=== PATIENT | male | born 1995 | race Caucasian/White ===

== ENCOUNTER 2020-08-29 18:00 | Emergency (ER) | payer BC, OTHER ==
[2020-08-29 18:06] VITALS: BP 135/88; PULSE 106; RESP 18; TEMP 98.4
[2020-08-29] MEDS ORDERED: IBUPROFEN 800 MG TAB PO STA (18:07)
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
--- NOTE | 2020-08-29 18:38 | XR ---
PROCEDURE: XR hand complete LT - 3V DATE AND TIME: 08/29/2020 6:13 PM CLINICAL INDICATION: [facility]; Injured while working TECHNIQUE: Department protocol COMPARISON: None FINDINGS: There is no fracture or malalignment. The soft tissues are unremarkable. IMPRESSION: NO ACUTE PROCESS.
== END 2020-08-29 19:00 | disposition home or self-care (01) ==
LOC: EC 18:00
DX: S63.617A Unspecified sprain of left little finger, initial encounter (principal); J45.909 Unspecified asthma, uncomplicated; X58.XXXA Exposure to other specified factors, initial encounter; Y92.532 Urgent care center as the place of occurrence of the external cause; Y99.0 Civilian activity done for income or pay
CPT/HCPCS: 99283

== ENCOUNTER 2021-03-21 03:00 | Emergency (ER) | payer BC, OTHER ==
[2021-03-21 03:15] VITALS: RESP 18; TEMP 97.8
--- NOTE | 2021-03-21 04:35 | XR ---
EXAMINATION TYPE: XR wrist complete LT DATE OF EXAM: 03/21/2021 COMPARISON: NONE HISTORY: Wrist pain TECHNIQUE: 4 views FINDINGS: Carpal bones are intact. I see no fracture nor dislocation. Joint spaces are normal. Metaca rpals are intact. IMPRESSION: Negative left wrist exam. No fracture.
[2021-03-21] MEDS ORDERED: IBUPROFEN 600 MG TAB PO STA (04:37)
[2021-03-21] MEDS ORDERED: HYDROcodone/APAP 5-325MG 1 EACH TAB PO STA (04:37)
[2021-03-21 04:43] VITALS: BP 126/89; PULSE 66
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
== END 2021-03-21 05:39 | disposition home or self-care (01) ==
LOC: EC 03:00
DX: S16.1XXA Strain of muscle, fascia and tendon at neck level, initial encounter (principal); S63.502A Unspecified sprain of left wrist, initial encounter; J45.909 Unspecified asthma, uncomplicated; Z79.899 Other long term (current) drug therapy; V89.2XXA Person injured in unspecified motor-vehicle accident, traffic, initial encounter; Y92.410 Unspecified street and highway as the place of occurrence of the external cause
CPT/HCPCS: 72125; 99284

== ENCOUNTER → 2021-03-31 | Outpatient (CLI) | payer OTHER ==
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
== END | disposition home or self-care (01) ==
LOC: RADXRMAIN 09:59
PROVIDERS: ATTEND Emergency Medicine
DX: M25.532 Pain in left wrist (principal); S69.92XA Unspecified injury of left wrist, hand and finger(s), initial encounter; V89.2XXA Person injured in unspecified motor-vehicle accident, traffic, initial encounter

== ENCOUNTER 2021-12-30 19:55 | Emergency (ER) | payer OTHER ==
[2021-12-30 20:12] VITALS: BP 127/83; PULSE 107; RESP 16; TEMP 98.3
[2021-12-30] MEDS ORDERED: PROPARACAINE 0.5% OPHTH DROPS 15 ML BTL BOTH EYES STA (20:35)
[2021-12-30] MEDS ORDERED: FLUORESCEIN STRIPS 1 MG STRIP BOTH EYES ONE (20:35)
[2021-12-30] MEDS ORDERED: ERYTHROMYCIN 5 MG/GM OPHTH OINT 3.5 GM TUBE RIGHT EYE STA (20:53)
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
== END 2021-12-30 21:37 | disposition home or self-care (01) ==
LOC: EC 19:55
DX: T15.01XA Foreign body in cornea, right eye, initial encounter (principal); J45.909 Unspecified asthma, uncomplicated
CPT/HCPCS: 99282; 99283

== ENCOUNTER 2022-03-05 02:17 | Emergency (ER) | payer OTHER ==
[2022-03-05 02:21] VITALS: TEMP 98.2
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
--- NOTE | 2022-03-05 03:26 | XR ---
EXAMINATION TYPE: XR forearm LT DATE OF EXAM: 03/05/2022 COMPARISON: NONE HISTORY: Pain TECHNIQUE: 2 view FINDINGS: Radius and ulna appear intact. No fracture seen. Wrist joint appears anatomic. There is a s cristobal screw in the medial humeral condyle. IMPRESSION: No acute abnormality of the left forearm. No fracture seen.
--- NOTE | 2022-03-05 03:27 | XR ---
EXAMINATION TYPE: XR shoulder complete LT DATE OF EXAM: 03/05/2022 COMPARISON: NONE HISTORY: Pain TECHNIQUE: 2 views FINDINGS: The glenohumeral joint is intact. No fracture nor dislocation. Joint spaces are normal. IMPRESSION: Negative left shoulder exam.
--- NOTE | 2022-03-05 03:28 | XR ---
EXAMINATION TYPE: XR humerus LT DATE OF EXAM: 03/05/2022 COMPARISON: NONE HISTORY: Pain TECHNIQUE: 3 views FINDINGS: No evidence of fracture of the humerus. There is a single screw fixating the medial humeral condyle. No sign of elbow joint effusion. IMPRESSION: No acute abnormality of the left humerus.
--- NOTE | 2022-03-05 03:28 | XR ---
EXAMINATION TYPE: XR hand limited LT DATE OF EXAM: 03/05/2022 COMPARISON: NONE HISTORY: Pain TECHNIQUE: 2 view FINDINGS: The metacarpals appear intact. Carpal bones are intact. No fracture nor dislocation. The th umb appears intact. IMPRESSION: No evidence of fracture of the left hand. Limited exam.
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
[2022-03-05] MEDS ORDERED: KETOROLAC 15 MG/ML 1 ML VIAL IM STA (03:59)
[2022-03-05] MEDS ORDERED: ORPHENADRINE 30 MG/ML 2 ML VIAL IM STA (03:59)
[2022-03-05 04:17] VITALS: BP 129/100; PULSE 70; RESP 16
== END 2022-03-05 04:20 | disposition home or self-care (01) ==
LOC: EC 02:17
DX: M25.531 Pain in right wrist (principal); J45.909 Unspecified asthma, uncomplicated; Z79.899 Other long term (current) drug therapy; V89.2XXA Person injured in unspecified motor-vehicle accident, traffic, initial encounter
CPT/HCPCS: 73030; 73060; 73090; 73120; 72125; 70450; 99285; 96372 ×2; J2360; J1885

== ENCOUNTER → 2022-03-06 | Outpatient (CLI) | payer OTHER ==
--- NOTE | 2022-03-06 12:31 | XR ---
EXAMINATION TYPE: XR wrist complete LT DATE OF EXAM: 03/06/2022 12:20 PM INDICATION: Patient age:Male; 26 years old; Reason for study: S60.212A L wrist contusion; COMPARISON: radiographs from one day prior. TECHNIQUE: left wrist was examined in the. Frontal, navicular, lateral, and oblique. FINDINGS: No acute osseous pathology, joint dislocation, or joint effusion. No evidence of any soft tissue swelling is seen. Sclerotic focus within the distal left radius consistent with bone island. IMPRESSION: No acute osseous pathology.
== END | disposition home or self-care (01) ==
LOC: RADXRMAIN 12:08
PROVIDERS: ATTEND Emergency Medicine
DX: S60.212A Contusion of left wrist, initial encounter (principal)

== ENCOUNTER → 2022-03-27 | Outpatient (CLI) | payer OTHER ==
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
== END | disposition home or self-care (01) ==
LOC: RADMRIMAIN 06:37
PROVIDERS: ATTEND Emergency Medicine
DX: J32.8 Other chronic sinusitis (principal); F07.81 Postconcussional syndrome
CPT/HCPCS: 70551

== ENCOUNTER → 2022-04-03 | Outpatient (CLI) | payer OTHER ==
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
== END | disposition home or self-care (01) ==
LOC: RADMRIMAIN 19:31
PROVIDERS: ATTEND Orthopaedic Surgery
DX: S63.502D Unspecified sprain of left wrist, subsequent encounter (principal); S60.212A Contusion of left wrist, initial encounter; M25.432 Effusion, left wrist

== ENCOUNTER 2022-10-06 19:41 | Emergency (ER) | payer OTHER ==
[2022-10-06 19:47] VITALS: BP 132/90; PULSE 72; RESP 18; TEMP 97.8
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
[2022-10-07 11:56] LABS: HIV 2 AB Non-Reactive (Non-Reactive); HIV AB P24 Non-Reactive (Non-Reactive); HIV P24 AG Non-Reactive (Non-Reactive)
[2022-10-07 22:24] LABS: Hepatitis C IgG Antibody Non-Reactive (Non-Reactive)
== END 2022-10-06 20:35 | disposition home or self-care (01) ==
LOC: EC 19:41
DX: Z77.21 Contact with and (suspected) exposure to potentially hazardous body fluids (principal); J45.909 Unspecified asthma, uncomplicated
CPT/HCPCS: 36415; 86706; 86803; 87390; 99282

== ENCOUNTER → 2023-08-20 | Outpatient (CLI) | payer OTHER ==
[2023-08-20 14:29] LABS: Basophils # (A) 0.07 X 10*3/uL (0.00-0.10); Eosinophils # (A) 0.36 X 10*3/uL (0.04-0.35); Eosinophils % (A) 5.2 %; HGB 16.1 g/dL (13.0-17.0); Lymphocytes # (A) 1.72 X 10*3/uL (0.90-5.00); Lymphocytes % (A) 24.8 %; MCH 30.7 pg (27.0-32.0); MCV 87.8 FL (80.0-97.0); Monocytes # (A) 0.49 X 10*3/uL (0.20-1.00); Monocytes % (A) 7.1 %; NRBC Per 100 WBC 0 X 10*3/uL (0.00-0.01); Neutrophils # (A) 4.28 X 10*3/uL (1.80-7.70); Neutrophils % (A) 61.8 %; Platelet Count 237 X 10*3/uL (140-440); RBC 5.24 X 10*6/uL (4.40-5.60); RDW 12.3 % (11.5-14.5); WBC 6.93 X 10*3/uL (4.50-10.00)
[2023-08-20 15:05] LABS: ALT 13 U/L (10-49); AST 14 U/L (14-35); Albumin 4.9 g/dL (3.8-4.9); Albumin/Globulin Ratio 2.23 Ratio (1.60-3.17); Alkaline Phosphatase 70 U/L (41-126); Blood Urea Nitrogen 16.1 mg/dL (9.0-27.0); Calcium 10.4 mg/dL (8.7-10.3); Chloride 105 mmol/L (96-109); Chol/HDL Ratio 3.87 Ratio; Globulin 2.2 g/dL (1.6-3.3); Glucose 100 mg/dL (70-110); LDL Cholesterol,Calculated 116.2 mg/dL (0.0-131.0); Potassium 4.5 mmol/L (3.5-5.5); Sodium 142 mmol/L (135-145); T4, Free (Free Thyroxine) 1.53 ng/dL (0.80-1.80); Total Bilirubin 1.2 mg/dL (0.3-1.2); Total Protein 7.1 g/dL (6.2-8.2)
== END | disposition home or self-care (01) ==
LOC: LABWHC1 08:03
PROVIDERS: ATTEND Internal Medicine Critical Care Medicine
DX: Z00.00 Encounter for general adult medical examination without abnormal findings (principal)
CPT/HCPCS: 36415; 80053; 80061; 82306; 83036; 84439; 84443; 85025

== ENCOUNTER → 2024-08-28 | Outpatient (CLI) | payer OTHER ==
--- NOTE | 2024-08-28 12:19 | CT ---
EXAMINATION TYPE: CT wrist RT wo con DATE OF EXAM: 08/28/2024 11:28 AM COMPARISON: No radiographic correlation available CLINICAL INDICATION: Male, 29 years old with history of S62.154A NONDISP FX OF HOOK PROCESS OF HAMATE BONE; PHH, RIGHT WRIST CRUSHING INJURY, pain mainly contiguous enhanced imaging and endovaginal sono graphy of the joint between TECHNIQUE: Axial images were obtained of the CT wrist RT without IV contrast. Coronal and sagittal re constructions performed 3-D reconstruction was created on a separate workstation. CT DLP: 252 mGycm, Automated exposure control for dose reduction was used. FINDINGS: Radiocarpal and distal radial ulnar joint as well as the midcarpal compartment appear intac t. No acute fracture is seen. Particular attention to the hook of the hamate bone No discrete soft tissu e abnormality identified. IMPRESSION: Right wrist without acute osseous abnormality seen. [facility], , 08/28/2024 12:17 PM
== END | disposition home or self-care (01) ==
LOC: RADCTMAIN 10:25
PROVIDERS: ATTEND Orthopaedic Surgery Hand Surgery
DX: S62.154A Nondisplaced fracture of hook process of hamate [unciform] bone, right wrist, initial encounter for closed fracture (principal); W23.0XXA Caught, crushed, jammed, or pinched between moving objects, initial encounter